=== PATIENT | female | born 1965 | race Caucasian/White ===

== ENCOUNTER 2020-10-08 08:31 | Day surgery (SDC) | payer OTHER ==
[2020-10-03 11:51] LABS: Hematocrit 34.3 % (30.3-42.9); Hemoglobin 11.4 gm/dl (10.1-14.3); Mean Corpuscular HGB Conc 33 % (30-34); Mean Corpuscular Volume 86 fl (79-97); Platelet Count 365 K/mm3 (140-440); Red Blood Count 3.97 M/mm3 (3.65-5.03); Red Cell Distribution Width 15.9 % (13.2-15.2)
[2020-10-03 12:08] LABS: BUN/Creatinine Ratio 18; Blood Urea Nitrogen 16 mg/dL (7-17); Calcium 9.4 mg/dL (8.4-10.2); Hemolysis Index 0
[~2020-10-08 08:31] MED LIST: ceFAZolin/STERILE WATER 2 GM/20 ML SYRINGE IV NR
[2020-10-08] MEDS ORDERED: LACTATED RINGERS 1,000 ML ONE (08:51)
[2020-10-08] MEDS ORDERED: ONDANSETRON 4 MG/2 ML INJ ONE (09:30)
[2020-10-08] MEDS ORDERED: LIDOCAINE MPF (2%) 20 MG/1 ML VIAL 5 ML ONE (09:30)
[2020-10-08] MEDS ORDERED: SUCCINYLCHOLINE CHLORIDE 200 MG/10 ML INJ MDV ONE (09:30)
[2020-10-08] MEDS ORDERED: ACETAMINOPHEN 500 MG TAB PO NR (09:38)
[2020-10-08] MEDS ORDERED: HYDROmorphone 1 MG/1 ML INJ IV PRN ×2 (09:38)
[2020-10-08] MEDS ORDERED: MAGNESIUM OXIDE 400 MG TAB PO NR (09:38)
[2020-10-08] MEDS ORDERED: ONDANSETRON 4 MG/2 ML INJ IV PRN (09:38)
--- NOTE | 2020-10-08 09:39 | Anesthesia Day of Surgery ---
Anesthesia Day of Surgery - Day of Surgery Patient Examined: Yes Patient H&P Reviewed: Yes Patient is NPO: Yes
--- NOTE | 2020-10-08 09:41 | Anesthesia Consultation ---
Anesthesia Consult and Med Hx Date of service: 10/08/20 - Airway Anesthetic Teeth Evaluation: Good ROM Head & Neck: Adequate Mental/Hyoid Distance: Adequate Mallampati Class: Class I Intubation Access Assessment: Good - Pre-Operative Health Status ASA Pre-Surgery Classification: ASA3 Proposed Anesthetic Plan: General - Pulmonary Hx Smoking: No Hx Respiratory Symptoms: No (+2FS. Has balance issues with gait) Hx Sleep Apnea: No (JOCELINE PRE SCREEN HIGH RISK) - Cardiovascular System Hx Hypertension: Yes (X 10 YRS. 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
[2020-10-08] MEDS ORDERED: LIDOCAINE (1%) 10 MG/1 ML VIAL 20 ML MDV ONE (09:42)
[2020-10-08] MEDS ORDERED: BUPIVACAINE/PF (0.25%) 2.5 MG/ML 30 ML VIAL INFILTRATI ONE ×2 (09:42→11:20)
[2020-10-08] MEDS ORDERED: MAGNESIUM OXIDE 400 MG TAB PO ONE (09:44)
[2020-10-08] MEDS ORDERED: LACTATED RINGERS 1,000 ML IV SCH (09:45)
[2020-10-08] MEDS ORDERED: ACETAMINOPHEN 325 MG/10.15 ML ORAL LIQD UNIT DOSE ONE (09:47)
[2020-10-08] MEDS ORDERED: CELECOXIB 200 MG CAP PO NR (10:00)
[2020-10-08] MEDS ORDERED: MIDAZOLAM 2 MG/2 ML INJ IV NR (10:00)
[2020-10-08] MEDS ORDERED: propofoL 200 MG/20 ML VIAL IV ONE (10:27)
[2020-10-08] MEDS ORDERED: fentaNYL 100 MCG/2 ML INJ ONE (10:27)
[2020-10-08] MEDS ORDERED: LIDOCAINE (1%) 10 MG/1 ML VIAL 20 ML MDV INFILTRATI ONE (11:20)
[2020-10-08] MEDS ORDERED: SODIUM CHLORIDE 0.9% IRR 1,500 ML BOTTLE IR ONE (11:21)
--- NOTE | 2020-10-08 11:48 | Short Stay Summary ---
Short Stay Documentation Date of service: 10/08/20 - History Principal diagnosis: pilonidal cyst without abscess H&P: obtained from office - Allergies and Medications Current Medications: Allergies No Known Allergies Allergy (Verified 10/02/20 12:58) Home Medications Medication Instructions Recorded Confirmed Last Taken Type Glimepiride [Amaryl] 1 mg PO QAM 10/02/20 10/02/20 Unknown History lisinopriL [Lisinopril] 10 mg PO DAILY 10/02/20 10/02/20 Unknown History metFORMIN [Glucophage] 500 mg PO BID 10/02/20 10/02/20 Unknown History Active Medications Acetaminophen (Acetaminophen 500 Mg Tab) 1,000 mg PO ONCE NR Stop: 10/08/20 13:00 Cefazolin Sodium (Cefazolin/Sterile Water 2 Gm/20 Ml Syringe) 2 gm IV PREOP NR Stop: 10/08/20 16:00 Celecoxib (Celecoxib 200 Mg Cap) 400 mg PO PREOP NR Stop: 10/08/20 18:00 Hydromorphone HCl (Hydromorphone 1 Mg/1 Ml Inj) 0.25 mg IV Q10MIN PRN PRN Reason: Pain, Moderate (4-6) Stop: 10/08/20 23:00 Hydromorphone HCl (Hydromorphone 1 Mg/1 Ml Inj) 0.5 mg IV Q10MIN PRN PRN Reason: Pain , Severe (7-10) Stop: 10/08/20 23:00 Lactated Ringer's (Lactated Ringers) 1,000 mls @ 125 mls/hr IV DIRECT AILEEN Magnesium Oxide (Magnesium Oxide 400 Mg Tab) 400 mg PO ONCE NR Stop: 10/08/20 15:00 Midazolam HCl (Midazolam 2 Mg/2 Ml Inj) 2 mg IV PREOP NR Stop: 10/08/20 23:59 Ondansetron HCl (Ondansetron 4 Mg/2 Ml Inj) 4 mg IV ONCE PRN PRN Reason: Nausea And Vomiting Stop: 10/08/20 15:00 - Brief post op/procedure progress note Date of procedure: 10/08/20 Pre-op diagnosis: pilonidal cyst without abscess Post-op diagnosis: same (soft tissue mass of lower back) Procedure: excision soft tissue mass lower back Anesthesia: GETA, local Findings: 4 cm lobulated encapsulated soft tissue mass of left lower back Surgeon: NORMA COLINDRES Estimated blood loss: minimal Pathology: list (soft tissue mass lower back) Specimen disposition: to lab Condition: stable - Hospital course Hospital course: Pt observed in PACU and discharged to home in stable condition - Disposition Condition at discharge: Good Disposition: [id number] TO HOME OR SELFCARE Short Stay Discharge Plan Activity: other (Avoid flexing at hips) Diet: regular Wound: open to air (May shower tomorrow, pat incision dry, do not scrub. Do not submerge incision in bath/hottub/pool for 2 weeks) Follow up with: ASH ROCA MD [Primary Care Provider] - 7 Days NORMA COLINDRES DO [Staff Physician] - 14 Days Prescriptions: Ibuprofen [Motrin 800 MG tab] 800 mg PO Q8HR PRN #30 tablet PRN Reason: Pain, Moderate (4-6) HYDROcodone/APAP 5-325 [Creole 5/325] 1 each PO Q6HR PRN #15 tablet PRN Reason: Pain , Severe (7-10)
[2020-10-08 13:16] VITALS: BP 158/76
--- NOTE | 2020-10-08 14:25 | Operative Report ---
Operative Report Operative Report: Date of procedure: 10/08/20 Pre-op diagnosis: pilonidal cyst without abscess Post-op diagnosis: same (soft tissue mass of lower back) Procedure: excision soft tissue mass lower back Anesthesia: MIRIAMA, local Findings: 4 cm lobulated encapsulated soft tissue mass of left lower back Surgeon: NORMA COLINDRES Estimated blood loss: minimal Pathology: list (soft tissue mass lower back) Specimen disposition: to lab Condition: stable Hospital course: Pt observed in PACU and discharged to home in stable condition HPI and indication: Patient is a 54-year-old female who was referred to the surgery clinic by her primary care physician to evaluate a mass of her sacral area. Patient had a history of multiple incision and drainage procedures performed in the sacral and gluteal cleft area for abscess. She had a palpable mass in the subcutaneous tissue in the left lower back/sacral region. This was felt to be a pilonidal cyst based on the patient's history. It was recommended that this be excised as the patient was having symptoms. All risks, benefits, alternatives to surgery were discussed with the patient questions answered. Consent obtained. The area was marked in the preoperative area. Procedure in detail: Patient was identified in the preoperative area, taken back to the operating room. Anesthesia was induced on the patient stretcher and then she was transferred to the operating room table in prone position. All bony prominences were padded appropriately and as per protocol. Patient was placed in jackknife position and the lower back and sacral area prepped and draped in the usual sterile fashion. The timeout was performed. Local anesthetic was infiltrated into the skin at the intended incision site. The mass was palpable in the area of the marking and a vertical incision was made over this area using a 15 blade. Dissection was carried down through the skin and subcutaneous tissue using electrocautery. Immediately visible in the field was abnormal appearing lobulated fatty tissue. This appeared well encapsulated and was dissected free from the surrounding tissue using a hemostat and electrocautery. It was apparent that the area of patient's concern was a lipoma and not a cyst. The surrounding tissue was normal without induration or inflammation. There was no fluid in the cavity. Once the mass was circumferentially dissected free from the surrounding tissue it was excised from the wound and measured at 4 cm. This was passed off the table as a specimen. The cavity was checked for hemostasis which was carefully ensured. Local anesthetic was once again infiltrated into the subcutaneous tissue and skin. The wound was then closed in layered fashion. The deep layer was closed using interrupted 3-0 Vicryl sutures. The skin was approximated using 4-0 Monocryl subcuticular stitch and skin glue. At the end of the case, all sponge, instrument, sharp counts were correct x2. The patient was transferred to the stretcher, awoken from anesthesia and extu bated, taken to PACU in stable condition.
--- NOTE | 2020-10-08 18:16 | Post Anesthesia Evaluation ---
- Post Anesthesia Evaluation Patient Participated: Yes Airway Patent: Yes Stable Respiratory Function: Yes Nausea/Vomiting: No Temp > 96.8F: Yes Pain Manageable: Yes Adequeate Hydration: Yes Anesthesia Complications: No Block Receding Appropriately: Not Applicable Patient on Ventilator: No
== END 2020-10-08 13:05 | disposition home or self-care (01) ==
LOC: OR 08:31
PROVIDERS: ATTEND Surgery
DX: L05.91 Pilonidal cyst without abscess (principal); D17.1 Benign lipomatous neoplasm of skin and subcutaneous tissue of trunk; Z20.822 Contact with and (suspected) exposure to COVID-19; I10 Essential (primary) hypertension; K21.9 Gastro-esophageal reflux disease without esophagitis; E66.9 Obesity, unspecified; E11.9 Type 2 diabetes mellitus without complications; D64.9 Anemia, unspecified; Z68.35 Body mass index [BMI] 35.0-35.9, adult; Z98.890 Other specified postprocedural states; Z79.899 Other long term (current) drug therapy; Z79.84 Long term (current) use of oral hypoglycemic drugs; Z86.73 Personal history of transient ischemic attack (TIA), and cerebral infarction without residual deficits
CPT/HCPCS: 21931; 36415; 80048; 82962; 84703; 85027; 88304; J0330; J0690; J2250; J2405; J2704; J3010; J7120; U0003; 88307